=== PATIENT | male | born 2000 | race Caucasian/White ===

== ENCOUNTER 2021-05-23 20:52 | Emergency (ER) | payer SELFPAY ==
[~2021-05-23] VITALS: Ht 172.7 cm; Wt 72.6 kg
--- NOTE | 2021-05-23 22:29 | NUR ---
Dr. Curry at bedside for MSE
[2021-05-23] MEDS: METHOCARBAMOL 500 MG TABLET PO ONE (23:02)
[2021-05-23] MEDS: IBUPROFEN 800 MG TABLET PO ONE (23:02)
[2021-05-23] MEDS ORDERED: IBUPROFEN 800 MG TABLET ONE (23:08)
[2021-05-23] MEDS ORDERED: METHOCARBAMOL 500 MG TABLET ONE (23:08)
[2021-05-24] MEDS ORDERED: CYCL10TA9 PO (02:05)
[2021-05-24] MEDS ORDERED: NAPR-1164 PO (02:05)
[2021-05-24 02:10] VITALS: BP 131/74
--- NOTE | 2021-05-24 02:10 | NUR ---
Patient discharged to home in stable condition. Written and verbal after care instructions given. Patient verbalizes understanding of instructions. Stressed follow up or return to ER for worsening s/s. pt ambulated with steady gait. denies pain. no sob. no chest pain.
== END 2021-05-24 02:11 | disposition home or self-care (01) ==
LOC: ER 20:56
DX: M54.9 Dorsalgia, unspecified (principal); R03.0 Elevated blood-pressure reading, without diagnosis of hypertension
CPT/HCPCS: 71046; A4663